=== PATIENT | male | born 1975 | race Caucasian/White ===

== ENCOUNTER 2018-02-13 18:25 | Emergency (ER) | payer OTHER, MEDICAID ==
[~2018-02-13] VITALS: Ht 177.8 cm; Wt 122.0 kg
[2018-02-13] MEDS ORDERED: TYLENOL EXTRA500 MG PO (18:34)
[2018-02-13] MEDS ORDERED: IBUPROFEN 800800 M1 PO ×2 (18:34→20:11)
[2018-02-13] MEDS ORDERED: NEURONTIN 300300 M1 PO (18:34)
[2018-02-13] MEDS ORDERED: LISINOPRIL10 MG PO (18:34)
[2018-02-13] MEDS ORDERED: EPIPEN0.3 MG/0.1 IM (20:09)
[2018-02-13 20:45] VITALS: BP 117/67
== END 2018-02-13 20:45 | disposition home or self-care (01) ==
LOC: M.ERS 18:25
DX: T63.441A Toxic effect of venom of bees, accidental (unintentional), initial encounter (principal); Y92.89 Other specified places as the place of occurrence of the external cause; R51 Headache; I10 Essential (primary) hypertension; M54.9 Dorsalgia, unspecified; G89.29 Other chronic pain; Z88.1 Allergy status to other antibiotic agents; F17.210 Nicotine dependence, cigarettes, uncomplicated

== ENCOUNTER 2018-02-21 17:02 | Emergency (ER) | payer OTHER, MEDICAID ==
[~2018-02-21] VITALS: Ht 180.3 cm; Wt 115.7 kg
[~2018-02-21 17:02] MED LIST: EPIPEN0.3 MG/0.1 IM; IBUPROFEN 800800 M1 PO; LISINOPRIL10 MG PO; NEURONTIN 300300 M1 PO; TYLENOL EXTRA500 MG PO
[2018-02-21 17:09] VITALS: BP 163/103
== END 2018-02-21 17:30 | disposition home or self-care (01) ==
LOC: M.ERS 17:02
DX: T22.111A Burn of first degree of right forearm, initial encounter (principal); I10 Essential (primary) hypertension; G89.29 Other chronic pain; M54.9 Dorsalgia, unspecified; G62.9 Polyneuropathy, unspecified; F17.210 Nicotine dependence, cigarettes, uncomplicated; Z88.1 Allergy status to other antibiotic agents; Z91.013 Allergy to seafood; Z91.030 Bee allergy status; X12.XXXA Contact with other hot fluids, initial encounter; Y93.89 Activity, other specified; Y92.89 Other specified places as the place of occurrence of the external cause; Y99.8 Other external cause status

== ENCOUNTER 2018-03-28 20:43 | Emergency (ER) | payer OTHER, MEDICAID ==
[~2018-03-28] VITALS: Ht 170.2 cm; Wt 111.1 kg
[2018-03-28] MEDS ORDERED: EPIPEN0.3 MG/0.1 IM ×3 (21:11→21:17)
[2018-03-28 21:31] VITALS: BP 139/66
== END 2018-03-28 21:32 | disposition home or self-care (01) ==
LOC: M.ERS 20:43
DX: T63.441A Toxic effect of venom of bees, accidental (unintentional), initial encounter (principal); I10 Essential (primary) hypertension; G62.9 Polyneuropathy, unspecified; G89.29 Other chronic pain; M54.9 Dorsalgia, unspecified; F17.210 Nicotine dependence, cigarettes, uncomplicated; Z88.1 Allergy status to other antibiotic agents; Z91.013 Allergy to seafood; Z91.030 Bee allergy status; Y92.89 Other specified places as the place of occurrence of the external cause

== ENCOUNTER 2018-05-06 09:30 | Emergency (ER) | payer OTHER, MEDICAID ==
[~2018-05-06] VITALS: Ht 180.3 cm; Wt 145.2 kg
[2018-05-06] MEDS ORDERED: PROZAC20 MG PO (09:35)
[2018-05-06] MEDS ORDERED: VISTARIL 25 MG25 M1 PO (09:35)
[2018-05-06] MEDS ORDERED: BUSPIRONE HCL10 MG PO (09:35)
[2018-05-06 09:57] LABS: CALCIUM 8.6 mg/dL (8.5-10.1); CREATININE 0.9 mg/dL (0.6-1.3); POTASSIUM 3.6 mmol/L (3.5-5.1)
[2018-05-06 11:13] VITALS: BP 145/85
== END 2018-05-06 11:13 | disposition home or self-care (01) ==
LOC: M.ERS 09:30
PROVIDERS: Emergency Medicine Emergency Medical Services
DX: J02.9 Acute pharyngitis, unspecified (principal); I10 Essential (primary) hypertension; F41.9 Anxiety disorder, unspecified; G62.9 Polyneuropathy, unspecified; G89.29 Other chronic pain; M54.9 Dorsalgia, unspecified; F17.210 Nicotine dependence, cigarettes, uncomplicated; Z88.1 Allergy status to other antibiotic agents; Z91.030 Bee allergy status; Z91.013 Allergy to seafood

== ENCOUNTER 2018-05-18 15:33 | Emergency (ER) | payer OTHER, MEDICAID ==
[~2018-05-18] VITALS: Ht 180.3 cm; Wt 125.7 kg
[~2018-05-18 15:33] MED LIST changes: +BUSPIRONE HCL10 MG PO; +PROZAC20 MG PO; +VISTARIL 25 MG25 M1 PO
[2018-05-18] MEDS ORDERED: FLEXERIL PO (17:33)
[2018-05-18] MEDS ORDERED: MOBIC15 MG PO (17:50)
[2018-05-18 17:57] VITALS: BP 140/80
== END 2018-05-18 17:57 | disposition home or self-care (01) ==
LOC: M.ERS 15:33
DX: M54.5 Low back pain (principal); M54.2 Cervicalgia; I10 Essential (primary) hypertension; F41.9 Anxiety disorder, unspecified; G62.9 Polyneuropathy, unspecified; G89.29 Other chronic pain; F17.210 Nicotine dependence, cigarettes, uncomplicated; Z88.1 Allergy status to other antibiotic agents; Z91.030 Bee allergy status; Z91.013 Allergy to seafood; W10.8XXA Fall (on) (from) other stairs and steps, initial encounter; Y93.89 Activity, other specified; Y92.89 Other specified places as the place of occurrence of the external cause; Y99.8 Other external cause status

== ENCOUNTER 2019-01-30 13:15 | Emergency (ER) | payer OTHER, MEDICAID ==
[~2019-01-30] VITALS: Ht 180.3 cm; Wt 122.5 kg
[~2019-01-30 13:15] MED LIST changes: +FLEXERIL PO; +MOBIC15 MG PO; -NEURONTIN 300300 M1 PO; +NEURONTIN600 MG PO
[2019-01-30] MEDS ORDERED: ZANAFLEX2 M1 PO (13:26)
[2019-01-30] MEDS ORDERED: WELLBUTRIN SR150 MG PO (13:26)
[2019-01-30] MEDS ORDERED: DEPAKOTE500 MG PO (13:27)
[2019-01-30] MEDS ORDERED: NORCO 5-325 TA1 EAC1 PO (13:46)
[2019-01-30] MEDS ORDERED: CLEOCIN HCL150 MG PO (13:46)
[2019-01-30] MEDS ORDERED: CENTANY30 GM NASAL (13:49)
[2019-01-30 14:06] VITALS: BP 149/103
== END 2019-01-30 14:07 | disposition home or self-care (01) ==
LOC: M.ERS 13:15
DX: J32.9 Chronic sinusitis, unspecified (principal); L03.211 Cellulitis of face; B35.0 Tinea barbae and tinea capitis; I10 Essential (primary) hypertension; M54.9 Dorsalgia, unspecified; G89.29 Other chronic pain; F31.9 Bipolar disorder, unspecified; F41.9 Anxiety disorder, unspecified; F17.210 Nicotine dependence, cigarettes, uncomplicated; Z91.030 Bee allergy status; Z91.013 Allergy to seafood

== ENCOUNTER 2019-02-05 15:19 | Emergency (ER) | payer OTHER, MEDICAID ==
[~2019-02-05] VITALS: Ht 180.3 cm; Wt 122.5 kg
[~2019-02-05 15:19] MED LIST changes: +CENTANY30 GM NASAL; +CLEOCIN HCL150 MG PO; +DEPAKOTE500 MG PO; +NORCO 5-325 TA1 EAC1 PO; +WELLBUTRIN SR150 MG PO; +ZANAFLEX2 M1 PO
[2019-02-05 15:25] VITALS: BP 149/100
[2019-02-05] MEDS ORDERED: KEFLEX250 M1 PO (15:29)
[2019-02-05] MEDS ORDERED: DOXYCYCLINE 10100 MG PO (15:41)
[2019-02-05] MEDS ORDERED: NORCO 5-325 TA1 EAC1 PO (15:41)
== END 2019-02-05 15:48 | disposition home or self-care (01) ==
LOC: M.ERS 15:19
DX: L03.317 Cellulitis of buttock (principal); I10 Essential (primary) hypertension; M54.9 Dorsalgia, unspecified; G89.29 Other chronic pain; F31.9 Bipolar disorder, unspecified; F41.9 Anxiety disorder, unspecified; F17.210 Nicotine dependence, cigarettes, uncomplicated; Z91.013 Allergy to seafood; Z91.030 Bee allergy status

== ENCOUNTER 2019-03-21 12:42 | Emergency (ER) | payer OTHER, MEDICAID ==
[~2019-03-21] VITALS: Ht 180.3 cm; Wt 120.2 kg
[~2019-03-21 12:42] MED LIST changes: +DOXYCYCLINE 10100 MG PO; +KEFLEX250 M1 PO
[2019-03-21] MEDS ORDERED: HUMALOG100 UNIT/1 SUBQ (12:52)
[2019-03-21] MEDS ORDERED: NORCO 5-325 TA1 EAC1 PO (13:24)
[2019-03-21 13:45] VITALS: BP 132/82
== END 2019-03-21 13:47 | disposition home or self-care (01) ==
LOC: M.ERS 12:42
DX: L02.412 Cutaneous abscess of left axilla (principal); L03.113 Cellulitis of right upper limb; F31.9 Bipolar disorder, unspecified; F41.9 Anxiety disorder, unspecified; I10 Essential (primary) hypertension; G89.29 Other chronic pain; G62.9 Polyneuropathy, unspecified; F17.210 Nicotine dependence, cigarettes, uncomplicated; Z88.1 Allergy status to other antibiotic agents; Z91.030 Bee allergy status; Z91.013 Allergy to seafood; Z76.4 Other boarder to healthcare facility

== ENCOUNTER 2019-03-23 19:31 | Emergency (ER) | payer OTHER, MEDICAID ==
[~2019-03-23] VITALS: Ht 180.3 cm; Wt 84.8 kg
[~2019-03-23 19:31] MED LIST changes: +HUMALOG100 UNIT/1 SUBQ
[2019-03-23] MEDS ORDERED: BACTRIM DS TAB1 EACH PO (19:48)
[2019-03-23 20:24] LABS: ABSOLUTE BASOPHILS 0.1 thou/uL (0.0-0.2); ABSOLUTE EOSINOPHILS 0.1 thou/uL (0.0-0.7); ABSOLUTE LYMPHOCYTES 2.8 thou/uL (0.8-5.3); ABSOLUTE MONOCYTES 0.6 thou/uL (0.0-1.2); ABSOLUTE NEUTROPHILS 5.2 thou/uL (1.6-8.1); BASOPHILS 0.8 %; EOSINOPHILS 0.6 %; HEMATOCRIT 43.3 % (42.0-52.0); HEMOGLOBIN 14.6 gm/dL (14.0-18.0); LYMPHOCYTES 32.2 %; MCH 28.2 pg (26.0-34.0); MCHC 33.7 g/dL (28.0-37.0); MCV 83.7 fL (80.0-100.0); MPV 8.9 fl. (7.2-11.1); NUCLEATED RBCS 0 /100WBC; PLATELET COUNT* 179 thou/uL (150-400); POLYS 59.4 %; RBC 5.18 mil/uL (4.50-6.00); RDW-CV 14.3 % (10.5-14.5); WBC 8.7 thou/uL (4.0-11.0)
[2019-03-23 20:27] LABS: CALCIUM 8.9 mg/dL (8.5-10.1); POTASSIUM 3.9 mmol/L (3.5-5.1)
[2019-03-23 20:32] LABS: ALBUMIN 3.8 g/dL (3.4-5.0); TOTAL BILIRUBIN 0.7 mg/dL (<0.1-1.0); TOTAL PROTEIN 7.5 g/dL (6.4-8.2)
[2019-03-23 20:38] LABS: URINE BILIRUBIN NEGATIVE (Negative); URINE BLOOD NEGATIVE (Negative); URINE CLARITY CLEAR; URINE COLOR YELLOW; URINE GLUCOSE-RANDOM 3+ (Negative); URINE KETONES NEGATIVE (Negative); URINE LEUKOCYTES-REFLEX NEGATIVE (Negative); URINE NITRITE-REFLEX NEGATIVE (Negative); URINE PROTEIN NEGATIVE (Negative)
[2019-03-23] MEDS ORDERED: DOXYCYCLINE 10100 MG PO (20:49)
[2019-03-23 21:12] VITALS: BP 140/75
--- NOTE | 2019-03-25 10:57 | EKG ---
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: NUVIA : 1975 Requested By: Dayne Browne Order Number: [id number] MD: Drake Carlin Measurements Intervals [place] Rate: 84 P: 66 NV: 148 QRS: 59 QRSD: 91 T: -21 QT: 364 QTc: 431 Interpretive Statements Sinus rhythm Probable left atrial enlargement Borderline T abnormalities, inferior leads No previous ECG available for comparison Electronically Signed On 03-25-2019 10:57:35 CDT by Drake Carlin [email or web address] <ELECTRONICALLY SIGNED> By: Drake Carlin MD, [facility] 03/25/19 1057 13 13 Drake Carlin MD, FACC /EPI
== END 2019-03-23 21:15 | disposition home or self-care (01) ==
LOC: M.ERS 19:31
PROVIDERS: Nurse Practitioner Psychiatric/Mental Health
DX: L02.412 Cutaneous abscess of left axilla (principal); I10 Essential (primary) hypertension; G89.29 Other chronic pain; G62.9 Polyneuropathy, unspecified; F31.9 Bipolar disorder, unspecified; F41.9 Anxiety disorder, unspecified; E11.9 Type 2 diabetes mellitus without complications; F17.210 Nicotine dependence, cigarettes, uncomplicated; Z88.1 Allergy status to other antibiotic agents; Z91.030 Bee allergy status; Z91.013 Allergy to seafood; Z79.4 Long term (current) use of insulin

== ENCOUNTER 2019-05-03 21:54 | Emergency (ER) | payer OTHER, MEDICAID ==
[~2019-05-03] VITALS: Ht 180.3 cm; Wt 131.1 kg
[~2019-05-03 21:54] MED LIST changes: +BACTRIM DS TAB1 EACH PO
[2019-05-03] MEDS ORDERED: NORCO 5-325 TA1 EAC1 PO (22:30)
[2019-05-03 22:36] VITALS: BP 169/101
== END 2019-05-03 22:38 | disposition home or self-care (01) ==
LOC: M.ERS 21:54
DX: M79.89 Other specified soft tissue disorders (principal); I10 Essential (primary) hypertension; G89.29 Other chronic pain; F41.9 Anxiety disorder, unspecified; F31.9 Bipolar disorder, unspecified; E11.40 Type 2 diabetes mellitus with diabetic neuropathy, unspecified; F17.210 Nicotine dependence, cigarettes, uncomplicated; Z88.1 Allergy status to other antibiotic agents; Z91.030 Bee allergy status; Z91.013 Allergy to seafood

== ENCOUNTER 2019-08-18 10:26 | Emergency (ER) | payer OTHER, MEDICAID ==
[~2019-08-18] VITALS: Ht 177.8 cm; Wt 127.0 kg
[~2019-08-18 10:26] MED LIST changes: -LISINOPRIL10 MG PO; +ZESTORETIC 20-1 EAC3 PO
[2019-08-18] MEDS ORDERED: LEVEMIR100 UNIT/2 SUBQ (10:40)
[2019-08-18] MEDS ORDERED: NORCO 5-325 TA1 EAC1 PO (12:35)
[2019-08-18 13:17] VITALS: BP 136/63
== END 2019-08-18 13:17 | disposition home or self-care (01) ==
LOC: M.ERS 10:26
DX: M25.562 Pain in left knee (principal); M25.552 Pain in left hip; M54.5 Low back pain; I10 Essential (primary) hypertension; G89.29 Other chronic pain; E11.40 Type 2 diabetes mellitus with diabetic neuropathy, unspecified; F17.210 Nicotine dependence, cigarettes, uncomplicated; Z88.1 Allergy status to other antibiotic agents; Z91.030 Bee allergy status; Z91.013 Allergy to seafood; W18.39XA Other fall on same level, initial encounter; Y93.89 Activity, other specified; Y92.89 Other specified places as the place of occurrence of the external cause; Y99.8 Other external cause status

== ENCOUNTER 2019-09-21 17:51 | Emergency (ER) | payer OTHER, MEDICAID ==
[~2019-09-21] VITALS: Ht 180.3 cm; Wt 127.0 kg
[~2019-09-21 17:51] MED LIST changes: +LEVEMIR100 UNIT/2 SUBQ
[2019-09-21 18:23] LABS: ABSOLUTE EOSINOPHILS 0.1 thou/uL (0.0-0.7); ABSOLUTE LYMPHOCYTES 1.4 thou/uL (0.8-5.3); ABSOLUTE MONOCYTES 0.2 thou/uL (0.0-1.2); ABSOLUTE NEUTROPHILS 2.6 thou/uL (1.6-8.1); BASOPHILS 0.9 %; EOSINOPHILS 1.3 %; HEMATOCRIT 42.3 % (42.0-52.0); HEMOGLOBIN 14.6 gm/dL (14.0-18.0); LYMPHOCYTES 32.6 %; MCH 28.5 pg (26.0-34.0); MCHC 34.6 g/dL (28.0-37.0); MCV 82.5 fL (80.0-100.0); MONOCYTES 5.4 %; MPV 8.8 fl. (7.2-11.1); NUCLEATED RBCS 0 /100WBC; PLATELET COUNT* 143 thou/uL (150-400); POLYS 59.8 %; RBC 5.13 mil/uL (4.50-6.00); RDW-CV 14.1 % (10.5-14.5); WBC 4.3 thou/uL (4.0-11.0)
[2019-09-21 18:24] LABS: URINE BILIRUBIN NEGATIVE (Negative); URINE BLOOD NEGATIVE (Negative); URINE CLARITY CLEAR; URINE COLOR YELLOW; URINE GLUCOSE-RANDOM NEGATIVE (Negative); URINE KETONES NEGATIVE (Negative); URINE LEUKOCYTES NEGATIVE (Negative); URINE NITRITE NEGATIVE (Negative); URINE PROTEIN NEGATIVE (Negative); URINE UROBILINOGEN 0.2 E.U./dl (0.2-1.0)
[2019-09-21 18:28] LABS: CREATININE 0.9 mg/dL (0.6-1.3); POTASSIUM 3.7 mmol/L (3.5-5.1)
[2019-09-21 18:32] LABS: ALBUMIN 3.6 g/dL (3.4-5.0); TOTAL BILIRUBIN 0.9 mg/dL (<0.1-1.0); TOTAL PROTEIN 6.8 g/dL (6.4-8.2)
[2019-09-21] MEDS ORDERED: LIDODERM1 EACH TOP (19:48)
[2019-09-21] MEDS ORDERED: MOBIC7.5 MG PO (19:48)
[2019-09-21 20:14] VITALS: BP 142/72
== END 2019-09-21 20:15 | disposition home or self-care (01) ==
LOC: M.ERS 17:51
PROVIDERS: Physician Assistant
DX: M54.5 Low back pain (principal); R10.9 Unspecified abdominal pain; I10 Essential (primary) hypertension; G89.29 Other chronic pain; E11.40 Type 2 diabetes mellitus with diabetic neuropathy, unspecified; E66.01 Morbid (severe) obesity due to excess calories; F17.210 Nicotine dependence, cigarettes, uncomplicated; Z88.1 Allergy status to other antibiotic agents; Z91.013 Allergy to seafood; Z91.030 Bee allergy status; Z68.39 Body mass index [BMI] 39.0-39.9, adult; Z87.442 Personal history of urinary calculi

== ENCOUNTER 2019-10-16 16:46 | Emergency (ER) | payer OTHER, MEDICAID ==
[~2019-10-16] VITALS: Ht 180.3 cm; Wt 124.7 kg
[~2019-10-16 16:46] MED LIST changes: +LIDODERM1 EACH TOP; +MOBIC7.5 MG PO
[2019-10-16 17:27] LABS: ABSOLUTE LYMPHOCYTES 1.9 thou/uL (0.8-5.3); ABSOLUTE MONOCYTES 0.3 thou/uL (0.0-1.2); ABSOLUTE NEUTROPHILS 3.1 thou/uL (1.6-8.1); BASOPHILS 0.6 %; EOSINOPHILS 0.9 %; HEMATOCRIT 45.4 % (42.0-52.0); LYMPHOCYTES 35.6 %; MCH 29.2 pg (26.0-34.0); MCHC 35.2 g/dL (28.0-37.0); MCV 82.9 fL (80.0-100.0); MONOCYTES 5.2 %; MPV 9.1 fl. (7.2-11.1); NUCLEATED RBCS 0 /100WBC; PLATELET COUNT* 145 thou/uL (150-400); POLYS 57.7 %; RBC 5.48 mil/uL (4.50-6.00); RDW-CV 13.8 % (10.5-14.5); WBC 5.3 thou/uL (4.0-11.0)
[2019-10-16 17:27] LABS: URINE BILIRUBIN NEGATIVE (Negative); URINE BLOOD NEGATIVE (Negative); URINE CLARITY CLEAR; URINE COLOR YELLOW; URINE GLUCOSE-RANDOM NEGATIVE (Negative); URINE KETONES NEGATIVE (Negative); URINE LEUKOCYTES-REFLEX NEGATIVE (Negative); URINE NITRITE-REFLEX NEGATIVE (Negative); URINE PROTEIN NEGATIVE (Negative); URINE UROBILINOGEN 0.2 E.U./dl (0.2-1.0)
[2019-10-16 17:28] LABS: CALCIUM 8.8 mg/dL (8.5-10.1); CREATININE 0.9 mg/dL (0.6-1.3)
[2019-10-16 17:33] LABS: ALBUMIN 4.1 g/dL (3.4-5.0); TOTAL PROTEIN 7.7 g/dL (6.4-8.2)
[2019-10-16] MEDS ORDERED: MACROBID 100 M100 MG PO (19:36)
[2019-10-16] MEDS ORDERED: NORCO 5-325 TA1 EAC1 PO (19:44)
[2019-10-16 20:06] VITALS: BP 116/69
== END 2019-10-16 20:06 | disposition home or self-care (01) ==
LOC: M.ERS 16:46
PROVIDERS: Physician Assistant
DX: N13.30 Unspecified hydronephrosis (principal); D35.02 Benign neoplasm of left adrenal gland; I10 Essential (primary) hypertension; E11.40 Type 2 diabetes mellitus with diabetic neuropathy, unspecified; G89.29 Other chronic pain; E66.01 Morbid (severe) obesity due to excess calories; F17.210 Nicotine dependence, cigarettes, uncomplicated; Z88.1 Allergy status to other antibiotic agents; Z68.38 Body mass index [BMI] 38.0-38.9, adult; Z91.030 Bee allergy status; Z91.013 Allergy to seafood

== ENCOUNTER 2019-10-24 22:59 | Emergency (ER) | payer OTHER, MEDICAID ==
[~2019-10-24] VITALS: Ht 180.3 cm; Wt 129.3 kg
[~2019-10-24 22:59] MED LIST changes: +MACROBID 100 M100 MG PO
[2019-10-24] MEDS ORDERED: FLOMAX0.4 MG PO (23:07)
[2019-10-24 23:20] LABS: URINE BILIRUBIN NEGATIVE (Negative); URINE BLOOD NEGATIVE (Negative); URINE CLARITY CLEAR; URINE COLOR YELLOW; URINE GLUCOSE-RANDOM 1+ (Negative); URINE KETONES NEGATIVE (Negative); URINE LEUKOCYTES-REFLEX NEGATIVE (Negative); URINE NITRITE-REFLEX NEGATIVE (Negative); URINE PROTEIN NEGATIVE (Negative); URINE UROBILINOGEN 0.2 E.U./dl (0.2-1.0)
[2019-10-24 23:47] LABS: ABSOLUTE LYMPHOCYTES 1.6 thou/uL (0.8-5.3); ABSOLUTE MONOCYTES 0.3 thou/uL (0.0-1.2); ABSOLUTE NEUTROPHILS 3.6 thou/uL (1.6-8.1); BASOPHILS 0.8 %; EOSINOPHILS 0.7 %; HEMATOCRIT 44.1 % (42.0-52.0); HEMOGLOBIN 15.5 gm/dL (14.0-18.0); LYMPHOCYTES 28.8 %; MCH 29.1 pg (26.0-34.0); MCHC 35.1 g/dL (28.0-37.0); MCV 83.1 fL (80.0-100.0); NUCLEATED RBCS 0 /100WBC; PLATELET COUNT* 165 thou/uL (150-400); POLYS 63.7 %; RBC 5.31 mil/uL (4.50-6.00); WBC 5.6 thou/uL (4.0-11.0)
[2019-10-24 23:53] LABS: CALCIUM 8.7 mg/dL (8.5-10.1); CREATININE 0.9 mg/dL (0.6-1.3); POTASSIUM 4.1 mmol/L (3.5-5.1)
[2019-10-25 00:05] LABS: ALBUMIN 3.8 g/dL (3.4-5.0); TOTAL BILIRUBIN 0.6 mg/dL (<0.1-1.0); TOTAL PROTEIN 7.1 g/dL (6.4-8.2)
[2019-10-25] MEDS ORDERED: HYDROCODON-ACE1 EAC8 PO (00:41)
[2019-10-25 01:06] VITALS: BP 156/93
== END 2019-10-25 00:45 | disposition home or self-care (01) ==
LOC: M.ERS 22:59
PROVIDERS: Emergency Medicine
DX: M54.5 Low back pain (principal); R10.9 Unspecified abdominal pain; I10 Essential (primary) hypertension; G89.29 Other chronic pain; E11.40 Type 2 diabetes mellitus with diabetic neuropathy, unspecified; E66.01 Morbid (severe) obesity due to excess calories; Z68.39 Body mass index [BMI] 39.0-39.9, adult; Z88.1 Allergy status to other antibiotic agents; Z91.030 Bee allergy status; Z91.013 Allergy to seafood

== ENCOUNTER 2020-02-10 20:42 | Emergency (ER) | payer OTHER, MEDICAID ==
[~2020-02-10] VITALS: Ht 180.3 cm; Wt 137.0 kg
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
[~2020-02-10 20:42] MED LIST changes: +FLOMAX0.4 MG PO; +HYDROCODON-ACE1 EAC8 PO
[2020-02-10] MEDS ORDERED: FLEXERIL PO (22:41)
[2020-02-10] MEDS ORDERED: PERCOCET 5-3251 EACH PO (22:41)
[2020-02-10 22:51] VITALS: BP 131/70
== END 2020-02-10 22:52 | disposition home or self-care (01) ==
LOC: M.ERS 20:42
DX: S06.0X0A Concussion without loss of consciousness, initial encounter (principal); M54.2 Cervicalgia; I10 Essential (primary) hypertension; E11.40 Type 2 diabetes mellitus with diabetic neuropathy, unspecified; E66.01 Morbid (severe) obesity due to excess calories; G89.29 Other chronic pain; F41.9 Anxiety disorder, unspecified; F31.9 Bipolar disorder, unspecified; F17.210 Nicotine dependence, cigarettes, uncomplicated; Z68.41 Body mass index [BMI] 40.0-44.9, adult; Z79.4 Long term (current) use of insulin; Z91.013 Allergy to seafood; Z91.030 Bee allergy status; Z88.1 Allergy status to other antibiotic agents; Z88.6 Allergy status to analgesic agent; W22.8XXA Striking against or struck by other objects, initial encounter; Y93.89 Activity, other specified; Y92.89 Other specified places as the place of occurrence of the external cause; Y99.8 Other external cause status

== ENCOUNTER 2020-05-20 20:36 | Emergency (ER) | payer OTHER, MEDICAID ==
[~2020-05-20] VITALS: Ht 180.3 cm; Wt 122.5 kg
[~2020-05-20 20:36] MED LIST changes: +PERCOCET 5-3251 EACH PO
[2020-05-20] MEDS ORDERED: PREDNISONE 20 M20 M1 PO (21:49)
[2020-05-20] MEDS ORDERED: PERCOCET 5-3251 EACH PO (21:49)
[2020-05-20 21:53] VITALS: BP 184/106
== END 2020-05-20 22:55 | disposition home or self-care (01) ==
LOC: M.ERS 20:36
DX: M54.2 Cervicalgia (principal); I10 Essential (primary) hypertension; G62.9 Polyneuropathy, unspecified; E11.9 Type 2 diabetes mellitus without complications; E66.01 Morbid (severe) obesity due to excess calories; Z68.37 Body mass index [BMI] 37.0-37.9, adult; Z88.6 Allergy status to analgesic agent; Z88.1 Allergy status to other antibiotic agents; Z88.5 Allergy status to narcotic agent; Z91.013 Allergy to seafood; Z91.030 Bee allergy status; Z79.4 Long term (current) use of insulin

== ENCOUNTER 2020-07-03 18:18 | Emergency (ER) | payer OTHER, MEDICAID ==
[~2020-07-03] VITALS: Ht 180.3 cm; Wt 117.9 kg
[~2020-07-03 18:18] MED LIST changes: +PREDNISONE 20 M20 M1 PO
[2020-07-03] MEDS ORDERED: ZOFRAN ODT4 MG SUBLING (18:38)
[2020-07-03 19:05] VITALS: BP 148/82
== END 2020-07-03 19:05 | disposition home or self-care (01) ==
LOC: M.ERS 18:18
DX: B34.9 Viral infection, unspecified (principal); Z20.828 Contact with and (suspected) exposure to other viral communicable diseases; I10 Essential (primary) hypertension; G89.29 Other chronic pain; E11.40 Type 2 diabetes mellitus with diabetic neuropathy, unspecified; E66.01 Morbid (severe) obesity due to excess calories; F17.210 Nicotine dependence, cigarettes, uncomplicated; Z88.6 Allergy status to analgesic agent; Z91.030 Bee allergy status; Z88.1 Allergy status to other antibiotic agents; Z91.013 Allergy to seafood; Z79.4 Long term (current) use of insulin; Z79.899 Other long term (current) drug therapy